=== PATIENT | female | born 1965 | race Caucasian/White ===

== ENCOUNTER → 2016-09-15 09:12 | Outpatient (CLI) | payer BC ==
[2016-03-21 11:12] VITALS: BMI 39.9
[~2016-09-15 09:12] MED LIST: BETAPACE160 MG PO; CYCLOBENZAPRINE10 MG PO; ESTRACE 0.5 MG0.5 MG PO; GLUCOPHAGE1000 MG PO; GLYBURIDE5 M1 PO; INDERAL 40 MG T40 MG PO; INVOKANA100 MG PO; JANUVIA100 MG PO; LANTUS SOL100 UNIT/1 SQ; LASIX40 MG PO; PEPCID20 MG PO; PLAVIX75 MG PO; PROTONIX40 MG PO; SYNTHROID75 MCG PO; ZYLOPRIM300 MG PO
== END | disposition home or self-care (01) ==
LOC: D.CT 09:12
DX: K44.9 Diaphragmatic hernia without obstruction or gangrene (principal)

== ENCOUNTER → 2017-01-09 09:43 | Outpatient (CLI) | payer BC ==
[2016-03-21 11:12] VITALS: BMI 39.9
[2017-01-09 10:39] LABS: ALBUMIN 3.4 g/dL (3.4-5.0); ALKALINE PHOSPHATASE 78 U/L (46-116); ALT (SGPT) 66 U/L (10-68); BILIRUBIN - TOTAL 0.49 mg/dL (0.2-1.3); CALC OSMOLALITY 284 mosm/kg (275-300); CALCIUM 9.1 mg/dL (8.5-10.1); CARBON DIOXIDE 23.6 mmol/L (21.0-32.0); CHLORIDE - SERUM 101 mmol/L (98-107); CREATININE - SERUM 0.8 mg/dL (0.6-1.3); POTASSIUM - SERUM 4.2 mmol/L (3.5-5.1); PROTEIN - SERUM 8.4 g/dL (6.4-8.2); SODIUM 136 mmol/L (136-145); UREA NITROGEN 15 mg/dL (7-18); eGFR NON AFRICAN AMERICAN 79 mL/min (90-120)
[2017-01-09 10:43] LABS: GLUCOSE 312 mg/dL (74-106)
== END | disposition home or self-care (01) ==
LOC: D.CT 09:43
PROVIDERS: Family Medicine
DX: R10.9 Unspecified abdominal pain (principal); K46.9 Unspecified abdominal hernia without obstruction or gangrene

== ENCOUNTER 2017-03-06 13:36 | Emergency (ER) | payer BC ==
[2016-03-21 11:12] VITALS: BMI 39.9
[~2017-03-06 13:36] MED LIST changes: +LANTUS SOL100 UNIT/1 SC; -LANTUS SOL100 UNIT/1 SQ
[2017-03-08] MEDS ORDERED: FARXIGA10 MG PO (11:14)
[2017-03-08] MEDS ORDERED: STOOL SOFTENER100 M1 PO (11:16)
[2017-03-08] MEDS ORDERED: PHENERGAN25 M1 PO (11:16)
[2017-03-08] MEDS ORDERED: HYDROCODONE-APA1 TAB PO (11:18)
== END 2017-03-06 18:54 | disposition home or self-care (01) ==
LOC: D.ER 13:36
DX: S62.617A Displaced fracture of proximal phalanx of left little finger, initial encounter for closed fracture (principal); X58.XXXA Exposure to other specified factors, initial encounter; Y93.89 Activity, other specified; Y92.89 Other specified places as the place of occurrence of the external cause; S10.91XA Abrasion of unspecified part of neck, initial encounter; K21.9 Gastro-esophageal reflux disease without esophagitis; E11.9 Type 2 diabetes mellitus without complications

== ENCOUNTER 2017-03-09 05:44 | Day surgery (SDC) | payer BC ==
[~2017-03-09] VITALS: Ht 160 cm; Wt 104.8 kg
[~2017-03-09 05:44] MED LIST changes: +FARXIGA10 MG PO; +HYDROCODONE-APA1 TAB PO; +PHENERGAN25 M1 PO; +STOOL SOFTENER100 M1 PO
[2017-03-09 06:46] VITALS: BP 108/68; Ht 160 cm; Wt 104.8 kg
[2017-03-09 07:30] LABS: BASOPHILS 0.2 % (0-2); EOSINOPHILS 2.3 % (0-7); HEMOGLOBIN 13.5 g/dL (12-16); IMMATURE GRANULOCYTES 0.2 % (0-5); LYMPHOCYTES 37.5 % (15-50); MCH 32.7 pg (26.0-34.0); MCHC 32.9 g/dL (31.0-37.0); MCV 99.3 fL (80.0-100.0); MEAN PLATELET VOLUME 11.3 fL (7.4-10.4); NEUTROPHILS 49.8 % (40-80); PLATELET COUNT 174 10x3/uL (130-400); RBC 4.13 10x6/uL (4.00-5.40); RDW 13.9 % (11.5-14.5); WBC 4.7 10x3/uL (4.8-10.8)
[2017-03-09 07:40] LABS: CALC OSMOLALITY 277 mosm/kg (275-300); CALCIUM 8.3 mg/dL (8.5-10.1); CARBON DIOXIDE 30.1 mmol/L (21.0-32.0); CHLORIDE - SERUM 101 mmol/L (98-107); CREATININE - SERUM 0.7 mg/dL (0.6-1.3); POTASSIUM - SERUM 3.7 mmol/L (3.5-5.1); SODIUM 137 mmol/L (136-145); UREA NITROGEN 10 mg/dL (7-18); eGFR NON AFRICAN AMERICAN > 90 mL/min (90-120)
[2017-03-09 07:42] LABS: GLUCOSE 197 mg/dL (74-106)
[2017-03-09 07:46] LABS: APTT 31.1 SECONDS (22.8-39.4); INR 1.06 (0.85-1.17); PROTIME 13.7 SECONDS (11.6-15.0)
[2017-03-09] MEDS ORDERED: NORCO 7.5/325 T1 TA1 PO (11:05)
[2017-03-09] MEDS ORDERED: DURICEF500 MG PO (11:05)
--- NOTE | 2017-03-09 12:01 | NUR ---
1135-RECD TO ROOM FROM PACU. LEFT HAND DRESSING DRY AND INTACT. IV PATENT R HAND, WITHOUT REDNESS OR SWELLING. DENIES PAIN AT LEFT HAND, ELEVATED. NAUSEA IS PACU AND WAS MEDICATED. NO NAUSEA AT PRESENT BUT WANTS TO REST. AT BEDSIDE.
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
== END 2017-03-09 14:35 | disposition home or self-care (01) ==
LOC: D.OPS 05:44 → D.PAN 09:45 → D.OPS 14:35
PROVIDERS: Anesthesiology
DX: S62.617A Displaced fracture of proximal phalanx of left little finger, initial encounter for closed fracture (principal); Z01.812 Encounter for preprocedural laboratory examination

== ENCOUNTER 2017-05-29 05:29 | Day surgery (SDC) | payer BC ==
[2017-05-28 12:09] LABS: BASOPHILS 0.2 % (0-2); HEMATOCRIT 45.5 % (36.0-48.0); HEMOGLOBIN 15.2 g/dL (12-16); IMMATURE GRANULOCYTES 0.3 % (0-5); LYMPHOCYTES 28.3 % (15-50); MCH 32.9 pg (26.0-34.0); MCHC 33.4 g/dL (31.0-37.0); MCV 98.5 fL (80.0-100.0); MEAN PLATELET VOLUME 11.7 fL (7.4-10.4); MONOCYTES 6.9 % (2-11); NEUTROPHILS 63.3 % (40-80); PLATELET COUNT 167 10x3/uL (130-400); RBC 4.62 10x6/uL (4.00-5.40); RDW 13.9 % (11.5-14.5); WBC 6.1 10x3/uL (4.8-10.8)
[2017-05-28 12:19] LABS: ANION GAP 15.9 mmol/L (8-16); CARBON DIOXIDE 26.7 mmol/L (21.0-32.0); CREATININE - SERUM 0.9 mg/dL (0.6-1.3); POTASSIUM - SERUM 3.6 mmol/L (3.5-5.1)
[2017-05-28 12:28] LABS: APTT 29.7 SECONDS (22.8-39.4); INR 1.01 (0.85-1.17); PROTIME 13.1 SECONDS (11.6-15.0)
[~2017-05-29 05:29] MED LIST changes: +DURICEF500 MG PO; +NORCO 7.5/325 T1 TA1 PO
[2017-05-29] MEDS ORDERED: PROTONIX40 MG PO (09:55)
[2017-05-29 10:07] VITALS: BP 113/66; BMI 39.9
[2017-05-29] MEDS ORDERED: HYDROCODON-ACE1 EAC7 PO (15:35)
[2017-05-29] MEDS ORDERED: DURICEF500 MG PO (15:35)
--- NOTE | 2017-05-29 17:05 | NUR ---
IV DC WITH CATHER TIP INTACT
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
== END 2017-05-29 17:20 | disposition home or self-care (01) ==
LOC: D.OPS 05:29 → D.PAN 11:00 → D.OPS 11:00
PROVIDERS: Anesthesiology
DX: S62.617G Displaced fracture of proximal phalanx of left little finger, subsequent encounter for fracture with delayed healing (principal); S66.892A Other injury of other specified muscles, fascia and tendons at wrist and hand level, left hand, initial encounter; G47.30 Sleep apnea, unspecified; K21.9 Gastro-esophageal reflux disease without esophagitis; E11.9 Type 2 diabetes mellitus without complications; Z01.812 Encounter for preprocedural laboratory examination

== ENCOUNTER 2017-06-04 19:04 | Inpatient (IN) | payer BC ==
[~2017-06-04] VITALS: Ht 160 cm; Wt 101.0 kg
[~2017-06-04 19:04] MED LIST changes: +HYDROCODON-ACE1 EAC7 PO
[2017-06-04 19:39] LABS: BASOPHILS 0.1 % (0-2); EOSINOPHILS 0.1 % (0-7); HEMOGLOBIN 16.3 g/dL (12-16); IMMATURE GRANULOCYTES 0.3 % (0-5); LYMPHOCYTES 12.2 % (15-50); MCH 33.4 pg (26.0-34.0); MCV 98.4 fL (80.0-100.0); MEAN PLATELET VOLUME 11.7 fL (7.4-10.4); MONOCYTES 4.5 % (2-11); NEUTROPHILS 82.8 % (40-80); PLATELET COUNT 183 10x3/uL (130-400); RBC 4.88 10x6/uL (4.00-5.40); WBC 12.8 10x3/uL (4.8-10.8)
[2017-06-04 20:05] LABS: ALBUMIN 3.6 g/dL (3.4-5.0); ALKALINE PHOSPHATASE 89 U/L (46-116); ALT (SGPT) 70 U/L (10-68); AMYLASE - SERUM 69 U/L (25-115); BILIRUBIN - TOTAL 0.64 mg/dL (0.2-1.3); CALC OSMOLALITY 282 mosm/kg (275-300); CALCIUM 9.1 mg/dL (8.5-10.1); CARBON DIOXIDE 21.8 mmol/L (21.0-32.0); CHLORIDE - SERUM 101 mmol/L (98-107); CREATININE - SERUM 0.6 mg/dL (0.6-1.3); GLUCOSE 245 mg/dL (74-106); LIPASE 179 U/L (73-393); POTASSIUM - SERUM 4.8 mmol/L (3.5-5.1); PROTEIN - SERUM 8.3 g/dL (6.4-8.2); SODIUM 138 mmol/L (136-145); UREA NITROGEN 11 mg/dL (7-18); eGFR NON AFRICAN AMERICAN > 90 mL/min (90-120)
[2017-06-04 20:22] LABS: APPEARANCE CLEAR (CLEAR); BILIRUBIN NEGATIVE (NEGATIVE); COLOR YELLOW (YELLOW); GLUCOSE 500 mg/dL (NEGATIVE); KETONE MODERATE mg/dL (NEGATIVE); NITRITE NEGATIVE (NEGATIVE); PROTEIN NEGATIVE (NEGATIVE); SPECIFIC GRAVITY 1.015 (1.005-1.020); UROBILINOGEN NORMAL (NORMAL)
--- NOTE | 2017-06-05 00:15 | NUR ---
RECEIVED TO FLOOR FROM ER, ORIENTED TO ROOM, CALL LIGHT IN REACH, NGT PLACED ON LOW INTERMITENT SUCTION, BED LOWEST POSITION, DENIES NEEDS, WILL CONTINUE TO MONITOR
--- NOTE | 2017-06-05 00:50 | NUR ---
PT BLEEDING FROM NOSE AFTER NGT PLACED, COUGHING UP BLOOD CLOTS IN MOUTH
[2017-06-05 01:55] VITALS: BP 133/79; BMI 39.0
[2017-06-05 04:00] VITALS: BP 141/93
--- NOTE | 2017-06-05 05:31 | NUR ---
PT WOKE UP COUGHING UP BLOOD AND CLOTS, ICE APPLIED TO NOSE AND HOB RAISED 15 DEGREEES
[2017-06-05 05:34] LABS: BASOPHILS 0.1 % (0-2); EOSINOPHILS 0.2 % (0-7); HEMATOCRIT 47.7 % (36.0-48.0); HEMOGLOBIN 15.9 g/dL (12-16); IMMATURE GRANULOCYTES 0.1 % (0-5); LYMPHOCYTES 14.8 % (15-50); MCH 33.1 pg (26.0-34.0); MCHC 33.3 g/dL (31.0-37.0); MCV 99.2 fL (80.0-100.0); MEAN PLATELET VOLUME 11.8 fL (7.4-10.4); MONOCYTES 9.6 % (2-11); NEUTROPHILS 75.2 % (40-80); PLATELET COUNT 180 10x3/uL (130-400); RBC 4.81 10x6/uL (4.00-5.40); RDW 14.1 % (11.5-14.5); WBC 10.1 10x3/uL (4.8-10.8)
[2017-06-05 06:05] LABS: ALBUMIN 3.3 g/dL (3.4-5.0); ALKALINE PHOSPHATASE 78 U/L (46-116); ALT (SGPT) 57 U/L (10-68); BILIRUBIN - TOTAL 0.64 mg/dL (0.2-1.3); CALC OSMOLALITY 285 mosm/kg (275-300); CALCIUM 8.5 mg/dL (8.5-10.1); CARBON DIOXIDE 21.7 mmol/L (21.0-32.0); CHLORIDE - SERUM 102 mmol/L (98-107); CREATININE - SERUM 0.5 mg/dL (0.6-1.3); GLUCOSE 254 mg/dL (74-106); PROTEIN - SERUM 7.7 g/dL (6.4-8.2); SODIUM 139 mmol/L (136-145); UREA NITROGEN 11 mg/dL (7-18); eGFR NON AFRICAN AMERICAN > 90 mL/min (90-120)
[2017-06-05 10:18] VITALS: BP 160/98
[2017-06-05 10:49] VITALS: Ht 160 cm; Wt 101.0 kg
[2017-06-05 12:17] VITALS: BP 152/87
[2017-06-05 15:46] VITALS: BP 148/68
--- NOTE | 2017-06-05 16:00 | NUR ---
PATIENT COMPLAINING THAT NGT ISNT WORKING AND THAT ABDOMEN FEELS MORE BLOATED. CHECKED PLACEMENT BY AUSCULTATION AND FLUSHED NGT WITH 60 ML WATER. NGT SUCTION WORKING AND NGT IN PLACE. WILL CONTINUE TO MONITOR. CALL LIGHT WITHIN REACH.
--- NOTE | 2017-06-05 18:55 | NUR ---
PATIENT SITTING UP IN BED AT THIS TIME. NGT INTACT. DRAINING DARK BROWN BLOOD TINTED DRAINAGE. PATIENT STATED FEELING BETTER SINCE NGT FLUSHED. IV INTACT. BSCDS PLACED ON PATIENT. CALL LIGHTW ITHIN REACH.
--- NOTE | 2017-06-05 19:53 | NUR ---
SITTING IN BED, STATES SHES FEELING BETTER, DENIES NEEDS, CALL LIGHT IN REACH, BED LOWEST POSITION, WILL CONTINUE TO MONITOR
[2017-06-05 20:00] VITALS: BP 143/89
[2017-06-06] VITALS: BP 139/91
[2017-06-06 04:00] VITALS: BP 154/87
--- NOTE | 2017-06-06 05:00 | NUR ---
PT RESTING IN BED WITH NO DISTRESS. RESPIRATIONS EVEN AND UNLABORED. SIDE RAILS X 2. BED IS IN LOWEST POSITION. CALL LIGHT IS IN REACH.
[2017-06-06 05:58] LABS: BASOPHILS 0.1 % (0-2); EOSINOPHILS 0.7 % (0-7); HEMATOCRIT 42.6 % (36.0-48.0); HEMOGLOBIN 13.8 g/dL (12-16); IMMATURE GRANULOCYTES 0.2 % (0-5); LYMPHOCYTES 26.9 % (15-50); MCH 32.8 pg (26.0-34.0); MCHC 32.4 g/dL (31.0-37.0); MEAN PLATELET VOLUME 11.4 fL (7.4-10.4); MONOCYTES 10.9 % (2-11); NEUTROPHILS 61.2 % (40-80); PLATELET COUNT 160 10x3/uL (130-400); RBC 4.21 10x6/uL (4.00-5.40); RDW 14.5 % (11.5-14.5); WBC 8.3 10x3/uL (4.8-10.8)
[2017-06-06 06:11] LABS: MCV 101.2 fL (80.0-100.0)
[2017-06-06 06:20] LABS: ALBUMIN 2.8 g/dL (3.4-5.0); ALKALINE PHOSPHATASE 63 U/L (46-116); BILIRUBIN - TOTAL 0.47 mg/dL (0.2-1.3); CALCIUM 7.6 mg/dL (8.5-10.1); CARBON DIOXIDE 26.4 mmol/L (21.0-32.0); CHLORIDE - SERUM 106 mmol/L (98-107); CREATININE - SERUM 0.6 mg/dL (0.6-1.3); SODIUM 141 mmol/L (136-145); UREA NITROGEN 9 mg/dL (7-18); eGFR NON AFRICAN AMERICAN > 90 mL/min (90-120)
[2017-06-06 06:24] LABS: ALT (SGPT) 37 U/L (10-68); CALC OSMOLALITY 283 mosm/kg (275-300); GLUCOSE 174 mg/dL (74-106); POTASSIUM - SERUM 3.6 mmol/L (3.5-5.1)
--- NOTE | 2017-06-06 07:00 | NUR ---
REPORT RECIEVED ASSUMED CARE. PATIENT IN BED WITH NO COMPLAINTS. IV INTACT. NGT INTACT. DRAINING LITE GREEN DRAINAGE AND BLOOD CLOTS RESOLVED. CALL LIGHT WITHIN REACH BSCDS ON.
[2017-06-06 08:09] VITALS: BP 130/91
[2017-06-06 12:51] VITALS: BP 145/79
--- NOTE | 2017-06-06 14:38 | NUR ---
NUTRITION F/U CHART REVIEWED, PT VISIT. REMAINS NPO WITH NG TO SUCTION. WILL PROVIDE DIET WHEN ADVANCED, MONITOR PO INTAKE. RD FOLLOWING
[2017-06-06 15:36] VITALS: BP 131/68
--- NOTE | 2017-06-06 18:04 | NUR ---
PATIENT IN BED WITH IV AND NGT INTACT. NO COMPLAINTS OR SIGNS OF DISTRESS. CALL LIGHT WITHIN REACH.
--- NOTE | 2017-06-06 19:15 | NUR ---
RECIEVED SHIFT REPORT. PT IS LYING IN BED. ALERT AND ORIENTED AND ABLE TO VERBALIZE NEEDS. IV IS PATENT AND FLUIDS ARE RUNNING PER ORDER. NGT TO RIGHT NARE PATENT AND CONNECTED TO LIWS. PT IS AMBULATORY BUT WAS INSTRUCTED TO CALL FOR ANY ASSISTANCE NEEDED. SCD'S ON. PT STATES PAIN IS 7/10. NO NEEDS ARE VERBALIZED AT THIS TIME. WILL CONTINUE TO MONITOR. SIDE RAILS ARE UP X 2. BED IS IN LOWEST POSITION. CALL LIGHT IS WITHIN REACH.
[2017-06-06 20:00] VITALS: BP 154/88
--- NOTE | 2017-06-06 20:20 | NUR ---
SHIFT ASSESSMENT COMPLETED. PT C/O PAIN 01/29 AND NAUSEA. ADMINISTERED PRESCRIBED PRN MORPHINE AND ZOFRAN PER ORDER. DENIES FURTHER NEEDS. WILL MONITOR. SIDE RAILS X 2. BED LOW. CALL LIGHT IN REACH.
[2017-06-07] VITALS: BP 143/72
[2017-06-07 04:00] VITALS: BP 144/85
[2017-06-07 05:47] LABS: BASOPHILS 0.1 % (0-2); EOSINOPHILS 0.5 % (0-7); HEMATOCRIT 39.5 % (36.0-48.0); HEMOGLOBIN 12.9 g/dL (12-16); IMMATURE GRANULOCYTES 0.2 % (0-5); LYMPHOCYTES 20.3 % (15-50); MCHC 32.7 g/dL (31.0-37.0); MONOCYTES 6.9 % (2-11); PLATELET COUNT 133 10x3/uL (130-400); RBC 3.91 10x6/uL (4.00-5.40); RDW 14.2 % (11.5-14.5); WBC 8.9 10x3/uL (4.8-10.8)
[2017-06-07 06:03] LABS: ALBUMIN 2.6 g/dL (3.4-5.0); ALKALINE PHOSPHATASE 62 U/L (46-116); ALT (SGPT) 34 U/L (10-68); BILIRUBIN - TOTAL 0.56 mg/dL (0.2-1.3); CALC OSMOLALITY 273 mosm/kg (275-300); CALCIUM 7.6 mg/dL (8.5-10.1); CARBON DIOXIDE 24.9 mmol/L (21.0-32.0); CHLORIDE - SERUM 102 mmol/L (98-107); CREATININE - SERUM 0.5 mg/dL (0.6-1.3); GLUCOSE 150 mg/dL (74-106); POTASSIUM - SERUM 3.4 mmol/L (3.5-5.1); PROTEIN - SERUM 6.8 g/dL (6.4-8.2); SODIUM 137 mmol/L (136-145); eGFR NON AFRICAN AMERICAN > 90 mL/min (90-120)
[2017-06-07 06:08] LABS: UREA NITROGEN 5 mg/dL (7-18)
--- NOTE | 2017-06-07 07:25 | NUR ---
ASSESSMENT PER FLOW SHEET.PAIN MEDS PER MAR FOR PAIN 9/10 SCALE TO ABDOMEN. PT REPORTS HEADACHE ALSO.NGT LIWS WITH LIGHT GREEN COLORED DRAINAGE IN CANISTER AND TUBING. PT REPORTS PASSING GAS.MONITOR FOR NEEDS.CALL LIGHT IN REACH
[2017-06-07 08:11] VITALS: BP 147/76
[2017-06-07 12:45] VITALS: BP 134/75
--- NOTE | 2017-06-07 15:14 | NUR ---
TOLERATING CLD.FEELS BETTER AFTER GETTING LIQUIDS IN HER STOMACH. REMAINS WITHOUT NEEDS
[2017-06-07 15:43] VITALS: BP 136/69
--- NOTE | 2017-06-07 18:58 | NUR ---
IV SITED TO RIGHT FOREARM X1 STICK USING ASEPTIC TECH,22G. PT WITHOUT CHAGE.CONT PLAN OF CARE
--- NOTE | 2017-06-07 19:36 | NUR ---
PT WITHOUT NEEDS,WITHOUT CHANGE.CONT PLAN OF CARE
--- NOTE | 2017-06-07 20:00 | NUR ---
PATIENT IS AWAKE, ALERT AND ORIENTED X'S 4. RESPIRATIONS ARE EVEN AND UNLABORED ON ROOM AIR. PATIENT DENIES NAUSEA AT THIS TIME. SHE STATED SHE IS STILL HAVING ABDOMINAL PAIN. PATIENT STATED SHE IS PASSING GAS, BUT DENIES ANY BOWEL MOVEMENTS SINCE LAST SUNDAY. SPOKE WITH PATIENT ABOUT AMBULATING TO ASSIST IN INCREASING BOWEL MOTILITY. SHE VERBALIZED UNDERSTANDING STATING "YEAH I KNOW. I WALKED IN THE [place] EARLIER, BUT I JUST CAN'T DO ANY MORE TONIGHT. I WILL TOMORROW THOUGH." EXPLAINED TO PATIENT THAT NARCOTICS SLOW DOWN BOWEL MOTILITY, SHE STATED "I KNOW, BUT I STILL NEED IT BECAUSE I AM STILL HAVING ABDOMINAL PAIN. AND IF YOU DO GIVE IT TO ME TONIGHT, CAN YOU GIVE IT TO ME WITH ZOFRAN BECAUSE IF NOT IT MAKES ME NAUSEOUS."
--- NOTE | 2017-06-07 20:11 | NUR ---
PATIENT STATED SHE IS GETTING STRESS HIVES. SHE IS REQUESTING BENADRYL. SHE STATED SHE GETS STRESS HIVES OFTEN AND TAKES BENADRYL AT HOME. PAGED JOVANY ARIZMENDI. NGT IS CLAMPED.
[2017-06-07 21:20] VITALS: BP 141/75
[2017-06-08 00:56] VITALS: BP 116/65
--- NOTE | 2017-06-08 02:22 | NUR ---
PATIENT STATED SHE IS HAVING PAIN ON THE INSIDE FROM HER NGT WHEN SHE MOVES. SHE RATED HER PAIN 8/10. SHE IS REQUESTING PAIN MEDICATION. THERE IS NOT AN ACTIVE ORDER FOR PAIN MEDICATION, THE MORPHINE HAS BEEN DISCONTINUED DUE TO STOP DATE. PAGED BOONE PERLA.
[2017-06-08 04:52] VITALS: BP 147/75
[2017-06-08 05:19] LABS: BASOPHILS 0.1 % (0-2); EOSINOPHILS 0.3 % (0-7); HEMATOCRIT 37.7 % (36.0-48.0); HEMOGLOBIN 12.4 g/dL (12-16); IMMATURE GRANULOCYTES 0.1 % (0-5); LYMPHOCYTES 17.7 % (15-50); MCH 32.7 pg (26.0-34.0); MCHC 32.9 g/dL (31.0-37.0); MCV 99.5 fL (80.0-100.0); MEAN PLATELET VOLUME 11.3 fL (7.4-10.4); MONOCYTES 5.5 % (2-11); NEUTROPHILS 76.3 % (40-80); PLATELET COUNT 147 10x3/uL (130-400); RBC 3.79 10x6/uL (4.00-5.40); RDW 13.9 % (11.5-14.5); WBC 9.7 10x3/uL (4.8-10.8)
[2017-06-08 05:57] LABS: ALBUMIN 2.4 g/dL (3.4-5.0); ALKALINE PHOSPHATASE 64 U/L (46-116); ALT (SGPT) 29 U/L (10-68); CHLORIDE - SERUM 101 mmol/L (98-107); CREATININE - SERUM 0.5 mg/dL (0.6-1.3); GLUCOSE 175 mg/dL (74-106); POTASSIUM - SERUM 3.2 mmol/L (3.5-5.1); PROTEIN - SERUM 6.5 g/dL (6.4-8.2); SODIUM 136 mmol/L (136-145); eGFR NON AFRICAN AMERICAN > 90 mL/min (90-120)
[2017-06-08 06:03] LABS: CALC OSMOLALITY 272 mosm/kg (275-300); UREA NITROGEN 3 mg/dL (7-18)
--- NOTE | 2017-06-08 06:11 | NUR ---
CALLED [facility], PHARMACIST NOTIFIED HIM THAT PATIENT NEEDS 4 BAGS OF 10MEQ POTASSIUM FOR POTASSIUM LEVEL OF 3.2.
--- NOTE | 2017-06-08 06:37 | NUR ---
IV TO RIGHT FOREARM, 22G. PATIENT IS ON ELECTROLYTE PROTOCOL, IV ONLY. FLUSHED IV, ASPIRATED BLOOD RETURN.
--- NOTE | 2017-06-08 08:00 | NUR ---
ASSESSMENT PER FLOW SHEET.PT WITHOUT DISTRESS.DENIES NEEDS AT PRESENT.CALL LIGHT IN REACH
[2017-06-08 08:02] VITALS: BP 144/73
[2017-06-08 12:26] VITALS: BP 126/63
--- NOTE | 2017-06-08 12:43 | NUR ---
Patient Name: SUMEET JOSEPH Admission Status: ER Accout number: [id number] Admission Date: 06-04-2017 : 1965 Admission Diagnosis:INTESTINAL ADHESIONS [BANDS], WITH PARTIAL OBSTRUCTION Attending: HANNA DE LA GARZA Current LOS: 4 Anticipated DC Date: 06-10-2017 Planned Disposition: Home Primary Insurance: [employer] Discharge Planning Comments: CM MET WITH PATIENT REGARDING D/C NEEDS AND PLANS. PATIENT STATED SHE LIVES WITH HER SPOUSE (BONI) AND HE WILL DRIVE HER HOME AT DISCHARGE. PATIENT STATES SHE HAS 3 STEPS TO ENTER HOME AND ONE FLIGHT OF STAIRS INSIDE. PATIENT STATED SHE IS INDEPENDENT WITH HER CARE AND HAS A GLUECOMETER AT HOME. PATIENTS PCP IS DR. CAMPO AND PHARMACY IS [facility]. PATIENT IS REFUSING HOME HEALTH AT THIS TIME. CM WILL CONTINUE TO FOLLOW PATIENT WITH D/C NEEDS AND PLANS. PCP DR. JAHAIRA DALEY AT [facility]- [phone] GENE- (SPOUSE) [phone] Retail Grocer: Valerie [place]
--- NOTE | 2017-06-08 12:43 | NUR ---
Is the patient Alert and Oriented? Yes 0 * How many steps to enter\exit or inside your home? 3 W/RAILS 0 * PCP DR. CAMPO 0 * Pharmacy [facility] 0 * Preadmission Environment Home with Family 0 * ADLs Independent 0 * Equipment Glucometer 0 * List name and contact numbers for known caregivers / representatives who currently or will assist patient after discharge: BONI (SPOUSE) [phone] 0 * Community resources currently utilized None 0 * Additional services required to return to the preadmission environment? Yes 0 * Can the patient safely return to the preadmission environment? Yes 0 * Has this patient been hospitalized within the prior 30 days at any hospital? No 0 Grand Total: 0
--- NOTE | 2017-06-08 13:43 | NUR ---
TOLERATING DIET.STATES NO PAIN AT PRESENT.MONITOR FOR NEEDS
[2017-06-08 15:51] VITALS: BP 133/66
--- NOTE | 2017-06-08 17:59 | NUR ---
COMPLAINS OF HEADACHE,TOLERATING DIET.WITHOUT CHANGE FROM INITIAL SHIFT ASSESSMENT.CONT PLAN OF CARE
[2017-06-08 20:00] VITALS: BP 120/61
[2017-06-09] VITALS: BP 135/70
[2017-06-09 04:00] VITALS: BP 116/68
[2017-06-09 05:16] LABS: BASOPHILS 0.1 % (0-2); EOSINOPHILS 1.6 % (0-7); HEMATOCRIT 37.7 % (36.0-48.0); HEMOGLOBIN 12.5 g/dL (12-16); IMMATURE GRANULOCYTES 0.3 % (0-5); LYMPHOCYTES 24.7 % (15-50); MCH 32.7 pg (26.0-34.0); MCHC 33.2 g/dL (31.0-37.0); MCV 98.7 fL (80.0-100.0); MEAN PLATELET VOLUME 11.6 fL (7.4-10.4); MONOCYTES 7.5 % (2-11); NEUTROPHILS 65.8 % (40-80); PLATELET COUNT 148 10x3/uL (130-400); RBC 3.82 10x6/uL (4.00-5.40); WBC 7.5 10x3/uL (4.8-10.8)
[2017-06-09 05:39] LABS: ALBUMIN 2.4 g/dL (3.4-5.0); ALKALINE PHOSPHATASE 73 U/L (46-116); ALT (SGPT) 25 U/L (10-68); BILIRUBIN - TOTAL 0.32 mg/dL (0.2-1.3); CALC OSMOLALITY 282 mosm/kg (275-300); CALCIUM 8.3 mg/dL (8.5-10.1); CARBON DIOXIDE 26.7 mmol/L (21.0-32.0); CHLORIDE - SERUM 103 mmol/L (98-107); CREATININE - SERUM 0.5 mg/dL (0.6-1.3); POTASSIUM - SERUM 3.3 mmol/L (3.5-5.1); PROTEIN - SERUM 6.8 g/dL (6.4-8.2); SODIUM 139 mmol/L (136-145); UREA NITROGEN 3 mg/dL (7-18); eGFR NON AFRICAN AMERICAN > 90 mL/min (90-120)
[2017-06-09 05:40] LABS: GLUCOSE 241 mg/dL (74-106)
--- NOTE | 2017-06-09 07:50 | NUR ---
PATIENT RESTING IN HER BED. PATIENT IS AWAKE, ALERT, AND ORIENTED X4. FAMILY AT PATIENT'S BEDSIDE. PATIENT DENIES ANY NEEDS AT PRESENT TIME. CALL LIGHT IN PATIENT'S REACH. WILL MONITOR PATIENT FOR ANY NEEDS.
[2017-06-09 09:38] VITALS: BP 124/61
--- NOTE | 2017-06-09 14:02 | NUR ---
DISCHARGE INSTRUCTIONS VERBALIZED TO PATIENT. PATIENT VERBALIZED UNDERSTANDING AND SIGNED DISCHARGE SHEETS.
== END 2017-06-09 14:10 | disposition home or self-care (01) | DRG 390 ==
LOC: D.ER 19:04 → D.MS 23:00
PROVIDERS: Family Medicine; ADMIT Emergency Medicine
DX: K56.51 Intestinal adhesions [bands], with partial obstruction (principal); R79.82 Elevated C-reactive protein (CRP); I10 Essential (primary) hypertension; E11.65 Type 2 diabetes mellitus with hyperglycemia; E11.40 Type 2 diabetes mellitus with diabetic neuropathy, unspecified; E03.9 Hypothyroidism, unspecified; G47.33 Obstructive sleep apnea (adult) (pediatric)

== ENCOUNTER 2017-11-06 07:36 | Outpatient (CLI) | payer BC ==
[~2017-11-06] VITALS: Ht 160 cm; Wt 100.0 kg
--- NOTE | ~2017-11-06 | HEMODYNAMI ---
PATIENT:SUMEET JOSEPH MEDICAL RECORD: [id number] : 61 LOCATION:[facility] ADMISSION DATE: 11/06/17 Generatedon:11/06/20179:59 Patient name: SUMEET JOSEPH Patient #: [id number] SSN: : 1965 Date of study: 11/06/2017 Page: Of Hemodynamic Procedure Report Patient Data Patient Demographics Procedure consent was obtained First Name: SUMEET Gender: Female Last Name: OPAL : 1965 [facility] Initial: IVANNA Age: 52 year(s) Patient #: [id number] Race: Unknown Additional ID: [id number] Contact details Address: [address] [place], [place] [address] State: [place] City: [place] Zip code: [address] Past Medical History Allergies Allergen Reaction Date Comments Reported Adhesive tape 11/06/2017 Aspirin 11/06/2017 NSAIDs 11/06/2017 Other allergy 11/06/2017 hydromorphone Admission Admission Data Admission Date: 11/06/2017 Admission Time: 7:36 Procedure Procedure Types Cath Procedure Diagnostic Procedure LHC LHC w/Coronaries Procedure Description Procedure Date Procedure Date: 11/06/2017 Procedure Start Time: 9:51 Procedure End Time: 9:59 Procedure Staff Name Function Marquez Piña MD Performing Physician Caroline Nye RT Monitor Alex Gracia RN Nurse Mary Galloway RT Scrub Procedure Data Cath Procedure Fluoroscopy Diagnostic fluoroscopy Total fluoroscopy Time: 1.1 time: 1.1 min min Diagnostic fluoroscopy Total fluoroscopy dose: 296 dose: 296 mGy mGy Contrast Material Contrast Material Type Amount (ml) Isovue 300 35 Entry Location Entry Primary Successful Side Size Upsize Upsize Entry Closure Zarate ccessful Closure Location (Fr) 1 (Fr) 2 (Fr) Remarks Device Remarks Radial Right 6 Fr Mechanical artery Short Compression Estimated blood loss: 5 ml Diagnostic catheters Device Type Used For End Catheter Placement DIAGNOSTIC [place] 110cm 5 LV Angiography Fr catheter ([id number]) DIAGNOSTIC [place] 110cm 5 Left Coronary Fr catheter ([id number]) Angiography DIAGNOSTIC [place] 110cm 5 Right Coronary Fr catheter ([id number]) Angiography Procedure Complications No complications Procedure Medications Medication Administration Route Dosage 0.9% NaCl I.V. 100 ml/hr Oxygen etCO2 Nasal cannula 2 l/min Heparin Flush Bag added to field 2 bags (1000units/500ml NS) Lidocaine 2% added to field 20 Radial Cocktail added to field 1 syringe (Verapomil 2mg/Nitro 400mcg/Heparin 1500units) Versed I.V. 2 mg Fentanyl I.V. 50 mcg Fentanyl I.V. 50 mcg Radial Cocktail I.A. 1 syringe (Verapomil 2mg/Nitro 400mcg/Heparin 1500units) Hemodynamics Rest Heart Rate: 81 (bpm) Snapshots Pre Cath Intra NCS Post Cath Vital Signs Time Heart Resp SPO2 etCO2 NIBP (mmHg) Rhythm Pain Sedation Rate (ipm) (%) (mmHg) Status Level (bpm) 9:15:08 81 18 92 0 105/54(75) NSR 0 (11) 10(A) , No pain 9:19:47 83 16 90 0 116/66(100) NSR 0 (11) 10(A) , No pain 9:24:29 81 15 95 38.1 107/56(85) NSR 0 (11) 10(A) , No pain 9:29:10 82 15 94 38.9 95/57(79) NSR 0 (11) 10(A) , No pain 9:33:47 82 16 96 37.4 97/59(77) NSR 0 (11) 10(A) , No pain 9:38:23 84 15 95 29.9 101/57(73) NSR 0 (11) 10(A) , No pain 9:43:04 84 19 95 37.4 110/46(69) NSR 0 (11) 10(A) , No pain 9:47:42 83 14 97 38.1 85/47(72) NSR 0 (11) 10(A) , No pain 9:52:19 87 16 92 37.4 101/46(76) NSR 0 (11) 10(A) , No pain 9:56:57 87 15 90 38.1 96/48(86) NSR 0 (11) 10(A) , No pain Medications Time Medication Route Dose Verified Delivered Reason Notes Effectiveness by by 9:21:04 0.9% NaCl I.V. 100 Alex Alex Per ml/hr Samia Gracia physician RN RN 9:21:14 Oxygen etCO2 2 l/min Alex Alex Per Nasal Samia Gracia physician cannula RN RN 9:21:26 Heparin Flush added 2 bags Alex Alex used for Bag to Samia Gracia procedure (1000units/500ml field RN RN NS) 9:21:40 Lidocaine 2% added 20ml Alex Alex for local to vial Lorigan Samia anesthetic field RN RN 9:21:56 Radial Cocktail added 1 Alex Alex used for (Verapomil to syringe Lorigan Samia procedure 2mg/Nitro field RN RN 400mcg/Heparin 1500units) 9:49:30 Versed I.V. 2 mg Alex Alex for sedation Samia Gracia RN RN 9:49:40 Fentanyl I.V. 50 mcg Alex Alex for sedation Samia Gracia RN RN 9:51:20 Fentanyl I.V. 50 mcg Alex Alex for sedation Samia Gracia RN RN 9:51:32 Radial Cocktail I.A. 1 Alex Marquez for (Verapomil syringe Samia Piña MD vasodilation 2mg/Nitro RN 400mcg/Heparin 1500units) Procedure Log Time Note 9:01:50 Time tracking: Regular hours (M-F 7:00 - 5:00) 9:01:55 Plan of Care:Hemodynamics will remain stable., Cardiac rhythm will remain stable., Comfort level will be maintained., Respiratory function will remain adequate., Patient/ family verbilizes understanding of procedure., Procedure tolerated without complication., Recovers from procedure without complications.. 9:01:57 Signed procedure consent form obtained from patient. 9:02:31 Mary Galloway RT(R) sent for patient. Start room use. 9:14:06 Patient received from Pre/Post Procedure Room to CCL 1 Alert and oriented. Tansferred to table in Supine position. 9:14:07 Warm blankets applied, and alexey hugger turned on for patient comfort. 9:14:08 Correct patient and procedure confirmed by team. 9:14:09 ECG and BP/O2 sat monitors applied to patient. 9:14:12 Vital chart was started 9:18:15 Baseline sample Acquired. 9:18:39 Rhythm: sinus rhythm 9:18:41 Full Disclosure recording started 9:19:24 H&P Date Dictated: 11/03/2017 Within 30 days and on chart., H&P Addendum completed by physician on day of procedure. (MUST COMPLETE FOR ALL OUTPATIENTS). 9:19:25 Pre-procedure instructions explained to patient. 9:19:26 Pre-op teaching completed and patient verbalized understanding. 9:19:27 Family in waiting room. 9:19:30 Patient NPO since Midnight. 9:19:44 Patient allergic to Adhesive tape 9:19:47 Patient allergic to Aspirin 9:19:56 Patient allergic to NSAIDs 9:20:19 Patient allergic to Other allergyhydromorphone 9:20:23 Is the patient allergic to Iodine/contrast media? No. 9:20:24 Is patient on blood thinner?Yes 9:20:27 ACC The patient was administered the following blood thiners within the last 24 hours: ACCPlavix 9:20:33 Patient diabetic? Yes. 9:20:34 If diabetic: On Metformin? Yes 9:20:37 If on Metformin: Last Dose? 11/04/2017 9:20:41 Previous problem with sedation/anesthesia? No ? 9:20:42 Snore? Yes 9:20:43 Sleep apnea? No 9:20:44 Deviated septum? No 9:20:45 Opens mouth fully? Yes 9:20:46 Sticks out tongue? Yes 9:20:48 Airway obstruction? No ? 9:20:52 Dentures? No ? 9:20:54 Pre procedure: right dorsailis pedis pulse 2+ Normal; easily identifiable; not easily obliterated 9:20:59 Modified Irvin's test Ulnar < 7 seconds 9:21:02 Patient pain scale 0/10 ?. 9:21:04 0.9% NaCl 100 ml/hr I.V. was administered by Alex Gracia RN; Per physician; 9:21:14 Oxygen 2 l/min etCO2 Nasal cannula was administered by Alex Gracia RN; Per physician; 9:21:20 IV patent on arrival in left hand with 0.9% NaCl at [facility]. 9:21:23 Lab results completed and on chart. 9:21:26 Heparin Flush Bag (1000units/500ml NS) 2 bags added to field was administered by Alex Gracia RN; used for procedure; 9:21:27 Right Radial & Right Groin area was prepped with chlora-prep and draped in sterile fashion 9:21:28 Alarms reviewed by R. N. 9:21:29 Sharps counted by scrub and verified by R.N. 9:21:33 Use device set Radial Dx or PCI 9:21:34 ACIST Syringe (20317) opened to sterile field. 9:21:35 Medline Cath Pack ([id number]) opened to sterile field. 9:21:36 Bag Decanter (2002S) opened to sterile field. 9:21:37 DIAGNOSTIC WIRE .035 260cm J wire (402893) opened to sterile field. 9:21:38 ACIST Hand Control (78264) opened to sterile field. 9:21:40 Lidocaine 2% 20ml vial added to field was administered by Alex Gracia RN; for local anesthetic; 9:21:43 ACIST Manifold (61034) opened to sterile field. 9:21:43 Tegaderm 4 x 4 (1626W) opened to sterile field. 9:21:47 MBrace Wrist Support ([id number]) opened to sterile field. 9:21:56 Radial Cocktail (Verapomil 2mg/Nitro 400mcg/Heparin 1500units) 1 syringe added to field was administered by Alex Gracia RN; used for procedure; 9:29:48 Zero performed for pressure channel P1 9:44:00 Physician paged 9:48:05 Final Timeout: patient, procedure, and site verified with staff and physician. All members of the team are in agreement. 9:48:07 Right Radial site verified by team. 9:48:10 Physical assessment completed. ASA score P 2 - A patient with mild systemic disease as per Marquez Piña MD. 9:48:13 Sedation plan: IV Moderate Sedation Medication:Versed, Fentanyl 9:49:30 Versed 2 mg I.V. was administered by Alex Gracia RN; for sedation; 9:49:40 Fentanyl 50 mcg I.V. was administered by Alex Gracia RN; for sedation; 9:49:50 Procedure started. 9:51:20 Fentanyl 50 mcg I.V. was administered by Alex Gracia RN; for sedation; 9:51:21 A 6 Fr Short sheath was inserted into the Right Radial artery 9:51:23 Local anesthetic to right radial artery with Lidocaine 2% by Marquez Piña MD.INITIAL ACCESS ONLY 9:51:32 Radial Cocktail (Verapomil 2mg/Nitro 400mcg/Heparin 1500units) 1 syringe I.A. was administered by Marquez Piña MD; for vasodilation; 9:52:06 A DIAGNOSTIC [place] 110cm 5 Fr catheter (371013) was advanced over the wire and used for LV Angiography. 9:53:37 LV gram done using FIGUEROA 9:53:42 Injector settings: Ml/sec: 5, Volume: 15, 9:53:49 A DIAGNOSTIC [place] 110cm 5 Fr catheter (025687) was advanced over the wire and used for Left Coronary Angiography. 9:54:44 A DIAGNOSTIC [place] 110cm 5 Fr catheter ([id number]) was advanced over the wire and used for Right Coronary Angiography. 9:54:47 Catheter removed. 9:55:00 Sheath removed intact; hemostasis achieved with Mechanical Compression to the Right Radial artery. 9:55:02 Procedure ended.(Physican Out) 9:56:15 Fluoroscopy time 01.10 minutes. 9:56:20 Fluoroscopy dose: 296 mGy 9:56:20 Flurop Dose total: 296 9:56:23 Contrast amount:Isovue 300 35ml. 9:56:25 Sharps counted by scrub and verified by R.N. 9:56:27 Insertion/operative site no bleeding no hematoma. 9:56:38 Post right radial artery:stable, clean and dry 9:56:40 Post Procedure Pulses reassessed and unchanged 9:56:49 Post-procedure physical assessment completed. ASA score P 2 - A patient with mild systemic disease as per Marquez Piña MD. 9:56:52 Post procedure rhythm: unchanged. 9:56:55 Estimated blood loss: 5 ml 9:56:56 Post procedure instruction explained to patient.Patient verbalizes understanding. 9:57:00 Patient needs reinforcement of post procedure teaching. 9:57:09 Procedure Complication : No complications 9:57:13 See physician's report for complete and final results. 9:57:24 TR BAND Standard ([id number]) opened to sterile field. 9:57:57 SHEATH 6Fr Prelude Radial ([id number]) opened to sterile field. 9:58:18 Procedure and supply charges have been captured, reviewed, submitted and are correct. 9:59:19 Vital chart was stopped 9:59:21 Report given to Pre/Post Procedure Room. 9:59:23 Patient transfered to Pre/Post Procedure Room with Stretcher. 9:59:33 Procedure ended. 9:59:33 Full Disclosure recording stopped 9:59:37 End room use (Document Last) Device Usage Item Name Manufacture Quantity Catalog Number Hospital Part Current M inimal Lot# / Charge Number Stock Stock Serial# Code ACIST Syringe Acist 1 20600 144804 743581 496858 2 0 (48746) [employer] Medline Cath Cardinal 1 [id number] 475689 42077 095197 5 [facility] ([id number]) Bag Decanter Microtek 1 2001S 622116 61629 433773 5 (2001S) Medical Inc. DIAGNOSTIC WIRE [place] 1 051558 456123 956740 759818 3 0 .035 260cm J wire (214966) ACIST Hand Acist 1 08679 132067 250537 341319 5 Control (72929) [employer] ACIST Manifold Acist 1 46883 845936 726879 255660 5 (44786) [employer] Inc Tegaderm 4 x 4 3M 1 1626W 927633 030119 406454 5 (1626W) MBrace Wrist Advanced 1 140-0250-00 843267 08885 275005 5 Support Vascular ([id number]) Dynamics DIAGNOSTIC Terumo 1 40-9893 604739 610579 606507 5 [place] 110cm 5 Fr catheter (826117) TR BAND Terumo 1 [id number] 845112 470858 438353 4 0 Standard ([id number]) SHEATH 6Fr Merit 1 [id number] 638200 428428 793991 5 Prelude Radial Medical ([id number]) Signature Audit [place] Stage Time Signature Unsigned Intra-Procedure 11/06/2017 Caroline 9:59:47 AM Counts RT(R) Signatures Monitor : Caroline Signature : Counts RT Date : Time : [place] [address] [place] [address]
--- NOTE | ~2017-11-06 | OP ---
PATIENT NAME: SUMEET JOSEHP MEDICAL RECORD: [id number] :61 LOCATION:D.[facility] ADMISSION DATE: SURGEON: CHRISTINA VIDALES MD DATE OF OPERATION: 11/06/2017 PROCEDURES: 1. Left heart catheterization. 2. Selective angiography. 3. Left ventriculogram. INDICATION: Chest pain compatible with angina. PROCEDURE IN DETAIL: After informed consent was obtained and after detailed explanation of risks and benefits as well as alternative therapies, the patient elected to proceed with angiogram and heart catheterization. The right radial area was prepped and draped in normal sterile fashion. Right radial artery was cannulated via modified Seldinger technique with placement of 5-Qatari sheath. All catheters were exchanged through the sheath. FINDINGS: Left ventriculogram was performed in standard 30-degree FIGUEROA view, reveals good cardiac wall motion throughout all segments. Overall ejection fraction estimated 60%. SELECTIVE CORONARY ANGIOGRAPHY: Left main, left anterior descending, left circumflex, and right coronary are all smooth-walled vessels with no angiographic evidence of coronary artery disease. OVERALL IMPRESSION: 1. No angiographic evidence of coronary artery disease. 2. Normal left heart pressures. 3. Normal left ventricular systolic function. Chest pain is noncardiac in etiology. No further cardiac workup needs to be ascertained. 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
[2017-11-06] MEDS ORDERED: MAXITROL EYE DRO5 ML EACH EYE (07:51)
[2017-11-06] MEDS ORDERED: TOUJEO SOL300 UNIT/1 SC (07:51)
[2017-11-06] MEDS ORDERED: TEMAZEPAM30 MG PO (07:52)
[2017-11-06] MEDS ORDERED: IMITREX50 MG PO (07:52)
[2017-11-06 08:05] VITALS: BP 133/85; Ht 160 cm; Wt 100.0 kg
[2017-11-06 08:19] LABS: BASOPHILS 0.3 % (0-2); EOSINOPHILS 1.5 % (0-7); HEMATOCRIT 48.8 % (36.0-48.0); HEMOGLOBIN 16.5 g/dL (12-16); IMMATURE GRANULOCYTES 0.2 % (0-5); LYMPHOCYTES 32.1 % (15-50); MCH 32.9 pg (26.0-34.0); MCHC 33.8 g/dL (31.0-37.0); MCV 97.4 fL (80.0-100.0); MONOCYTES 7.8 % (2-11); NEUTROPHILS 58.1 % (40-80); PLATELET COUNT 169 10x3/uL (130-400); RBC 5.01 10x6/uL (4.00-5.40); RDW 13.9 % (11.5-14.5)
[2017-11-06 08:38] LABS: CALC OSMOLALITY 283 mosm/kg (275-300); CALCIUM 8.8 mg/dL (8.5-10.1); CARBON DIOXIDE 27.1 mmol/L (21.0-32.0); CHLORIDE - SERUM 100 mmol/L (98-107); CREATININE - SERUM 0.7 mg/dL (0.6-1.3); GLUCOSE 269 mg/dL (74-106); POTASSIUM - SERUM 4.3 mmol/L (3.5-5.1); SODIUM 137 mmol/L (136-145); UREA NITROGEN 15 mg/dL (7-18); eGFR NON AFRICAN AMERICAN > 90 mL/min (90-120)
== END 2017-11-06 12:05 | disposition home or self-care (01) ==
LOC: D.CATH 07:36
PROVIDERS: Internal Medicine Interventional Cardiology
DX: R07.89 Other chest pain (principal); Z01.812 Encounter for preprocedural laboratory examination

== ENCOUNTER → 2018-01-18 09:20 | Outpatient (CLI) | payer BC ==
[2017-11-06 08:05] VITALS: BMI 39.0
[~2018-01-18 09:20] MED LIST changes: +IMITREX50 MG PO; +MAXITROL EYE DRO5 ML EACH EYE; +TEMAZEPAM30 MG PO; +TOUJEO SOL300 UNIT/1 SC
== END | disposition home or self-care (01) ==
LOC: D.RAD 09:20
DX: R13.10 Dysphagia, unspecified (principal); R12 Heartburn; R10.13 Epigastric pain

== ENCOUNTER → 2018-05-31 13:59 | Outpatient (CLI) | payer BC ==
[2017-11-06 08:05] VITALS: BMI 39.0
== END | disposition home or self-care (01) ==
LOC: D.MRI 05-28 09:30 → D.CT 05-28 09:30
DX: R51 Headache (principal)

== ENCOUNTER → 2019-02-06 16:32 | Outpatient (CLI) | payer OTHER ==
[2017-11-06 08:05] VITALS: BMI 39.0
== END | disposition home or self-care (01) ==
LOC: D.CT 16:00
PROVIDERS: ATTEND Family Medicine
DX: R10.9 Unspecified abdominal pain (principal)

== ENCOUNTER 2019-11-26 09:00 | Outpatient (CLI) | payer OTHER ==
[2017-11-06 08:05] VITALS: BMI 39.0
== END 2019-11-26 10:00 | disposition home or self-care (01) ==
LOC: D.MAMMO 09:00
PROVIDERS: ATTEND Family Medicine
DX: Z12.31 Encounter for screening mammogram for malignant neoplasm of breast (principal)

== ENCOUNTER 2020-03-17 10:30 | Outpatient (CLI) | payer OTHER ==
[2017-11-06 08:05] VITALS: BMI 39.0
== END 2020-03-17 11:30 | disposition home or self-care (01) ==
LOC: D.MAMMO 10:30
PROVIDERS: ATTEND Family Medicine
DX: N63.32 Unspecified lump in axillary tail of the left breast (principal)

== ENCOUNTER → 2020-03-30 14:48 | Outpatient (CLI) | payer OTHER ==
[2017-11-06 08:05] VITALS: BMI 39.0
== END | disposition home or self-care (01) ==
LOC: D.US 14:48 → D.MRI 16:00
PROVIDERS: ATTEND Psychiatry & Neurology Neurology
DX: G45.8 Other transient cerebral ischemic attacks and related syndromes (principal); Z86.73 Personal history of transient ischemic attack (TIA), and cerebral infarction without residual deficits; G60.9 Hereditary and idiopathic neuropathy, unspecified